=== PATIENT | male | born 1960 | race Caucasian/White ===

== ENCOUNTER 2016-07-11 17:30 | Outpatient (CLI) | payer OTHER | END 2016-07-11 17:31 | disposition home or self-care (01) | DX: T84.59XA Infection and inflammatory reaction due to other internal joint prosthesis, initial encounter (principal) ==

== ENCOUNTER 2017-02-07 13:05 | Outpatient (CLI) | payer OTHER ==
[2017-02-08 10:07] LABS: TEST RESULT REPORT (())
== END 2017-02-07 13:06 | disposition home or self-care (01) ==
LOC: LAB.F 13:05
PROVIDERS: ATTEND Family Medicine
DX: Z11.3 Encounter for screening for infections with a predominantly sexual mode of transmission (principal)
CPT/HCPCS: 36415; 81599; 86592; 86694; 86695; 86696; 86704; 86803; 87340; 87389; 87491; 87591

== ENCOUNTER 2017-03-25 08:30 | Outpatient (CLI) | payer OTHER ==
[2017-03-25 13:53] LABS: BASOPHILS # (AUTO) 0.1 10^3/uL (0.0-0.1); BASOPHILS % (AUTO) 0.8 %; EOSINOPHILS # (AUTO) 0.2 10^3/uL (0.0-0.7); EOSINOPHILS % (AUTO) 2.8 %; HCT - HEMATOCRIT 43.6 % (42.0-52.0); HGB - HEMOGLOBIN 14.7 g/dL (14.0-18.0); LYMPHOCYTES # (AUTO) 2.9 10^3/uL (1.5-3.5); LYMPHOCYTES % (AUTO) 38.6 %; MEAN CORPUSCULAR HEMOGLOBIN 31.1 pg (27.0-31.0); MEAN CORPUSCULAR HGB CONC 33.8 g/dL (32.0-36.0); MEAN PLATELET VOLUME 9.9 fL (7.4-11.4); MONOCYTES # (AUTO) 0.6 10^3/uL (0.0-1.0); MONOCYTES % (AUTO) 7.3 %; NEUTROPHILS # (AUTO) 3.8 10^3/uL (1.5-6.6); NEUTROPHILS % (AUTO) 50.5 %; RED BLOOD COUNT 4.74 10^6/uL (4.70-6.10); RED CELL DISTRIBUTION WIDTH 13.7 % (12.0-15.0); UNCORRECTED WHITE BLOOD COUNT 7.6 x10^3/uL; WHITE BLOOD COUNT 7.6 x10^3/uL (4.8-10.8)
[2017-03-25 14:04] LABS: CALCIUM 8.9 mg/dL (8.5-10.3); CARBON DIOXIDE - CO2 27 mmol/L (21-32); CHLORIDE 106 mmol/L (101-111); GLUCOSE 97 mg/dL (70-100); POTASSIUM 4.3 mmol/L (3.5-5.0); SODIUM 139 mmol/L (135-145)
[2017-03-25 14:28] LABS: THYROID STIMULATING HORMONE 1.32 uIU/mL (0.34-5.60)
[2017-03-25 14:32] LABS: FERRITIN 74.4 ng/mL (23.9-336.2); TOTAL T3 0.82 ng/mL (0.87-1.78)
[2017-03-25 14:39] LABS: ALBUMIN/GLOBULIN RATIO 1.6 (1.0-2.2); BILIRUBIN,TOTAL 0.6 mg/dL (0.2-1.0); BUN - BLOOD UREA NITROGEN 14 mg/dL (6-20); CHOL/HDL RATIO 4.2 (<5.0); CHOLESTEROL 181 mg/dL; CREATININE 0.9 mg/dL (0.6-1.2); GFR - MDRD 87 (>89); HDL CHOLESTEROL 43 mg/dL; LDL/HDL RATIO 2.9 (<3.6); TOTAL PROTEIN 6.7 g/dL (6.7-8.2); TRIGLYCERIDES 62 mg/dL; VLDL CHOLESTEROL 12 mg/dL
[2017-03-25 15:36] LABS: HEMOGLOBIN A1C 0.6 g/dL
== END 2017-03-25 08:31 | disposition home or self-care (01) ==
LOC: LAB.F 08:30
PROVIDERS: ATTEND Family Medicine
DX: Z00.00 Encounter for general adult medical examination without abnormal findings (principal); E03.9 Hypothyroidism, unspecified; E55.9 Vitamin D deficiency, unspecified; R53.83 Other fatigue; I10 Essential (primary) hypertension
CPT/HCPCS: 36415; 80053; 80061; 82306; 82626; 82728; 83036; 84439; 84443; 84480; 84481; 84482; 85025

== ENCOUNTER 2019-07-19 14:25 | Outpatient (CLI) | payer OTHER ==
[2019-07-19 18:24] LABS: ALBUMIN 4.2 g/dL (3.2-5.5); ALBUMIN/GLOBULIN RATIO 1.4 (1.0-2.2); BILIRUBIN,TOTAL 0.5 mg/dL (0.2-1.0); CALCIUM 9.2 mg/dL (8.5-10.3); CREATININE 1.1 mg/dL (0.6-1.2); TOTAL PROTEIN 7.2 g/dL (6.7-8.2)
== END 2019-07-19 14:26 | disposition home or self-care (01) ==
LOC: LAB.S 14:25
PROVIDERS: ATTEND Nurse Practitioner Psychiatric/Mental Health
DX: F43.12 Post-traumatic stress disorder, chronic (principal); Z79.899 Other long term (current) drug therapy
CPT/HCPCS: 36415; 80053

== ENCOUNTER 2020-11-03 10:07 | Outpatient (CLI) | payer OTHER ==
[2020-11-03 14:47] LABS: BASOPHILS # (AUTO) 0.1 10^3/uL (0.0-0.1); BASOPHILS % (AUTO) 0.8 %; EOSINOPHILS # (AUTO) 0.2 10^3/uL (0.0-0.7); EOSINOPHILS % (AUTO) 2.2 %; HCT - HEMATOCRIT 46.9 % (42.0-52.0); HGB - HEMOGLOBIN 15.7 g/dL (14.0-18.0); LYMPHOCYTES % (AUTO) 51.5 %; MEAN CORPUSCULAR HGB CONC 33.5 g/dL (32.0-36.0); MEAN CORPUSCULAR VOLUME 98.5 fL (80.0-94.0); MEAN PLATELET VOLUME 11.3 fL (7.4-11.4); MONOCYTES # (AUTO) 0.6 10^3/uL (0.0-1.0); NEUTROPHILS # (AUTO) 2.9 10^3/uL (1.5-6.6); NEUTROPHILS % (AUTO) 37.4 %; PLT - PLATELET COUNT 220 10^3/uL (130-450); RED BLOOD COUNT 4.76 10^6/uL (4.70-6.10); RED CELL DISTRIBUTION WIDTH 13.2 % (12.0-15.0); WHITE BLOOD COUNT 7.8 x10^3/uL (4.8-10.8)
[2020-11-03 15:22] LABS: ALBUMIN 4.3 g/dL (3.2-5.5); ALBUMIN/GLOBULIN RATIO 1.3 (1.0-2.2); ALKALINE PHOSPHATASE 59 IU/L (42-121); ALT ALANINE AMINOTRANSFERASE 27 IU/L (10-60); AST ASPARTATE AMINOTRANSFERASE 28 IU/L (10-42); BILIRUBIN,TOTAL 0.8 mg/dL (0.2-1.0); BUN - BLOOD UREA NITROGEN 11 mg/dL (6-20); CALCIUM 9.2 mg/dL (8.5-10.3); CARBON DIOXIDE - CO2 28 mmol/L (21-32); CHLORIDE 102 mmol/L (101-111); CHOL/HDL RATIO 3.1 (<5.0); CHOLESTEROL 206 mg/dL; GFR - MDRD 76 (>89); GLUCOSE 118 mg/dL (70-100); HDL CHOLESTEROL 66 mg/dL; LDL CHOLESTEROL,CALCULATED 124 mg/dL; LDL/HDL RATIO 1.9 (<3.6); POTASSIUM 4.4 mmol/L (3.5-5.0); SODIUM 140 mmol/L (135-145); TOTAL PROTEIN 7.6 g/dL (6.7-8.2); TRIGLYCERIDES 79 mg/dL; VLDL CHOLESTEROL 16 mg/dL
[2020-11-03 15:30] LABS: THYROID STIMULATING HORMONE 1.1 uIU/mL (0.34-5.60)
== END 2020-11-03 10:08 | disposition home or self-care (01) ==
LOC: LAB.S 10:07
PROVIDERS: ATTEND Nurse Practitioner Psychiatric/Mental Health
DX: F43.12 Post-traumatic stress disorder, chronic (principal); E55.9 Vitamin D deficiency, unspecified
CPT/HCPCS: 36415; 80053; 80061; 82306; 82607; 83721; 84443; 85025

== ENCOUNTER 2021-03-09 20:58 | Outpatient (CLI) | payer OTHER | END 2021-03-09 20:59 | disposition critical access hospital (66) | LOC: EMS 20:58 | DX: R07.9 Chest pain, unspecified (principal) | CPT/HCPCS: A0425; A0427 ==

== ENCOUNTER 2021-03-09 22:07 | Emergency (ER) | payer OTHER ==
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
[2021-03-09 22:32] LABS: BASOPHILS % (AUTO) 0.3 %; EOSINOPHILS % (AUTO) 0.3 %; HCT - HEMATOCRIT 42.3 % (42.0-52.0); HGB - HEMOGLOBIN 14.3 g/dL (14.0-18.0); LYMPHOCYTES # (AUTO) 3.1 10^3/uL (1.5-3.5); LYMPHOCYTES % (AUTO) 29.6 %; MEAN CORPUSCULAR HEMOGLOBIN 33.7 pg (27.0-31.0); MEAN CORPUSCULAR HGB CONC 33.8 g/dL (32.0-36.0); MEAN CORPUSCULAR VOLUME 99.8 fL (80.0-94.0); MEAN PLATELET VOLUME 10.3 fL (7.4-11.4); MONOCYTES # (AUTO) 0.6 10^3/uL (0.0-1.0); NEUTROPHILS # (AUTO) 6.8 10^3/uL (1.5-6.6); NEUTROPHILS % (AUTO) 63.6 %; PLT - PLATELET COUNT 207 10^3/uL (130-450); RED BLOOD COUNT 4.24 10^6/uL (4.70-6.10); RED CELL DISTRIBUTION WIDTH 12.8 % (12.0-15.0); WHITE BLOOD COUNT 10.6 x10^3/uL (4.8-10.8)
[2021-03-09 22:46] LABS: ALBUMIN 3.9 g/dL (3.2-5.5); ALBUMIN/GLOBULIN RATIO 1.3 (1.0-2.2); BILIRUBIN,TOTAL 0.8 mg/dL (0.2-1.0); CALCIUM 8.6 mg/dL (8.5-10.3); CREATININE 0.9 mg/dL (0.6-1.2); POTASSIUM 3.9 mmol/L (3.5-5.0); TOTAL PROTEIN 6.9 g/dL (6.7-8.2)
[2021-03-09] MEDS ORDERED: HYDROmorphone 1 MG/ML CARPUJECT IVP STA (22:59)
[2021-03-09] MEDS ORDERED: SODIUM CHLORIDE 0.9% 1,000 ML IV STA (22:59)
--- NOTE | 2021-03-09 22:59 | XRAY Report ---
PROCEDURE: Chest 1 View X-Ray INDICATIONS: Chest Pain TECHNIQUE: One view of the chest was acquired. COMPARISON: 05/18/2013. FINDINGS: Surgical changes and devices: Right shoulder arthroplasty. Lungs and pleura: No pleural effusions or pneumothorax. Lungs are clear. Mediastinum: Mediastinal contours appear normal. Heart size is normal. Bones and chest wall: No suspicious bony lesions. Overlying soft tissues appear unremarkable. IMPRESSION: No acute cardiopulmonary disease process. Reviewed by: Santa So MD, PhD on 03/09/2021 10:58 PM PDT Approved by: Santa So MD, PhD on 03/09/2021 10:58 PM PDT Station ID: [id number]
[2021-03-09] MEDS ORDERED: IOVERSOL 320 100 ML VIAL IVP ONE (23:28)
--- NOTE | 2021-03-10 00:29 | CT Report ---
PROCEDURE: ANGIO CHEST W/WO INDICATIONS: severe sudden onset R chest pain CONTRAST: IV CONTRAST: Optiray 320 ml: 100 PO CONTRAST: *NO PO CONTRAST TECHNIQUE: Prior to and after administration of intravenous contrast, 2 mm axial images were acquired from the p ulmonary apices to the posterior costophrenic angles during the arterial phase. In addition, 1 mm shanna g kernel and 5 mm soft tissue kernel reconstructions were performed. 3-dimensional coronal oblique ma ximum intensity projection (MIP) reformats, 8 mm axial MIP, and 5 mm coronal and sagittal MPR reforma ts were then performed through the thorax. For radiation dose reduction, the following was used: auto mated exposure control, adjustment of mA and/or kV according to patient size. COMPARISON: None FINDINGS: Image quality: Excellent. Aorta: Thoracic aorta is normal caliber. Precontrast images demonstrate no segmental aortic hematoma. Postcontrast images demonstrate normal postcontrast enhancement with no dissection. A few scattered atherosclerotic calcifications noted in the thoracic aorta without vascular stenosis. Lungs and pleur a: Lungs are clear. No pleural effusions or pneumothorax. Central and peripheral airways are paten t. Mediastinum: Heart size is normal, without pericardial effusion. No mediastinal or hilar adenopathy . Thoracic aorta is normal in caliber and enhancement. Esophagus is normal in caliber, without hiat al hernia. Bones and chest wall: Right shoulder arthroplasty. No suspicious bony lesions. Mildly displaced acut e anterolateral right fifth and sixth rib fractures. Chronic anterior right fourth rib fracture. Spin e degenerative disc disease and facet arthropathy are noted. No axillary or supraclavicular adenopat hy. The thyroid is normal in size and there are no incidental findings. Abdomen: Visualized upper abdominal solid organs appear normal in the early arterial phase of enhanc ement. IMPRESSION: Right fifth and sixth rib fractures. Reviewed by: Santa So MD, PhD on 03/10/2021 12:27 AM PDT Approved by: Santa So MD, PhD on 03/10/2021 12:27 AM PDT Station ID: [id number]
--- NOTE | 2021-03-10 00:33 | CT Report ---
PROCEDURE: ANGIO ABDOMEN W/WO INDICATIONS: follow through for CTA chest dissection study CONTRAST: IV CONTRAST: Optiray 320 ml: 100 PO CONTRAST: *NO PO CONTRAST TECHNIQUE: Prior to and following the administration of intravenous contrast, 2.5 mm thick sections acquired fro m the diaphragm to the iliac crests 10 mm maximum-intensity projection (MIP) reformats were then acqu ired. For radiation dose reduction, the following was used: automated exposure control. COMPARISON: None FINDINGS: Image quality: Excellent. Aorta: Aorta demonstrates normal caliber and postcontrast enhancement. No aortic dissection. Scatter ed prostatic calcifications noted in the aorta and the abdominal Haresh without hemodynamically sig nificant stenosis. Extravascular soft tissues: Atelectasis noted in the pinna portions of the lung bases. Heart size is normal. Liver and spleen are normal in size and enhancement. Gallbladder is within normal limits. Biliary system is non dilated. Pancreas enhances normally. No adrenal nodules. Kidneys are normal in size and enhancement, without hydronephrosis. Small hiatal hernia. Non opacified bowel loops are normal in wall thickness and caliber. No free fluid or air. No retroperitoneal or mesenteric adenop athy. No ventral hernias. No suspicious bony lesions. No vertebral body compression fractures. Spi ne degenerative disc disease and facet arthropathy are noted. IMPRESSION: No aortic dissection. Reviewed by: Santa So MD, PhD on 03/10/2021 12:32 AM PDT Approved by: Santa So MD, PhD on 03/10/2021 12:32 AM PDT Station ID: [id number]
[2021-03-10 00:37] VITALS: BP 117/82
[2021-03-10] MEDS ORDERED: oxyCODONE/ACET 5/325 Prepack 4 PO STA (01:24)
[2021-03-10] MEDS ORDERED: IOVERSOL 320 100 ML VIAL IVP ONE (01:27)
== END 2021-03-10 01:33 | disposition home or self-care (01) ==
LOC: EDUNIT# → ED 22:07
DX: S22.41XA Multiple fractures of ribs, right side, initial encounter for closed fracture (principal); S50.311A Abrasion of right elbow, initial encounter; X58.XXXA Exposure to other specified factors, initial encounter; Y93.89 Activity, other specified; I10 Essential (primary) hypertension
CPT/HCPCS: 36415; 71045; 71275; 74175; 80053; 83690; 84484; 85025; 93005; 94150; 96374; 99284; J1170; Q9967

== ENCOUNTER 2021-03-13 13:48 | Observation (INO) | payer OTHER ==
[2021-03-13] MEDS ORDERED: DEXAMETHASONE 10 MG/ML VIAL IVP STA (14:11)
[2021-03-13] MEDS ORDERED: KETOROLAC 30 MG/ML VIAL IVP STA (14:11)
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
--- NOTE | 2021-03-13 14:37 | XRAY Report ---
PROCEDURE: Chest 1 View X-Ray INDICATIONS: chest pain TECHNIQUE: One view of the chest was acquired. COMPARISON: March 09, 2021 FINDINGS: SUPPORT DEVICES: None. LUNG/PLEURA: Left basilar platelike densities. The remaining lung zones well aerated. MEDIASTINUM: The cardiomediastinal silhouette is within normal limits. BONES/SOFT TISSUES: No acute abnormality. Persistent elevation of the left diaphragm. A right shoulder arthroplasty is noted. IMPRESSION: 1.Left basilar densities, likely reflecting atelectasis. A superimposed infiltrate cannot be excluded . Reviewed by: Luis A Nice MD on 03/13/2021 2:35 PM PDT Approved by: Luis A Nice MD on 03/13/2021 2:35 PM PDT Station ID: [id number]
[2021-03-13] MEDS ORDERED: HYDROmorphone 0.5 MG/0.5 ML SYRINGE IVP PRN (16:27)
[2021-03-13] MEDS ORDERED: ACETAMINOPHEN 325 MG TABLET PO PRN (16:27)
[2021-03-13] MEDS ORDERED: ONDANSETRON ODT 4 MG TABLET TL PRN (16:27)
[2021-03-13] MEDS ORDERED: ONDANSETRON 4 MG/2 ML VIAL IVP PRN (16:27)
[2021-03-13] MEDS ORDERED: oxyCODONE 5 MG TABLET PO PRN (16:27)
[2021-03-13] MEDS ORDERED: SODIUM CHLORIDE FLUSH 0.9% 10 ML SYRINGE IVP PRN (16:27)
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
[2021-03-13 17:27] LABS: B. PARAPERTUSSIS- RESP PCR PAN NOT DETECTED; B. PERTUSSIS- RESP PCR PANEL NOT DETECTED; C. PNEUMONIAE- RESP PCR PANEL NOT DETECTED; CORONAVIRUS 229E-RESP PCR NOT DETECTED; CORONAVIRUS HKU1-RESP PCR NOT DETECTED; CORONAVIRUS NL63-RESP PCR NOT DETECTED; CORONAVIRUS OC43-RESP PCR NOT DETECTED; HUMAN METAPNEUMOVIRUS NOT DETECTED; INFLUENZA A- RESP PCR PANEL NOT DETECTED; INFLUENZA B - RESP PCR PANEL NOT DETECTED; M. PNEUMONIAE- RESP PCR PANEL NOT DETECTED; PARAINFLUENZA VIRUS 1 NOT DETECTED; PARAINFLUENZA VIRUS 2 NOT DETECTED; PARAINFLUENZA VIRUS 3 NOT DETECTED; PARAINFLUENZA VIRUS 4 NOT DETECTED; RHINOVIRUS/ENTEROVIRUS NOT DETECTED; RSV- RESP PCR PANEL NOT DETECTED; SARS-CoV-2 -RESP PCR PANEL NOT DETECTED
[2021-03-13] MEDS: KETOROLAC 15 MG/ML VIAL IVP SCH (17:44)
[2021-03-13] MEDS: SODIUM CHLORIDE FLUSH 0.9% 10 ML SYRINGE IVP SCH (17:44)
[2021-03-13] MEDS: D5.45NS W/20 MEQ KCL 1,000 ML IV SCH (17:45)
[2021-03-13] MEDS: oxyCODONE 5 MG TABLET PO PRN (19:29)
[2021-03-13] MEDS: FAMOTIDINE 20 MG TABLET PO SCH (21:13)
[2021-03-14] MEDS: KETOROLAC 15 MG/ML VIAL IVP SCH ×2 (00:22→05:30)
[2021-03-14] MEDS: oxyCODONE 5 MG TABLET PO PRN ×2 (00:23→05:32)
[2021-03-14] MEDS: SODIUM CHLORIDE FLUSH 0.9% 10 ML SYRINGE IVP SCH ×2 (00:23→10:56)
[2021-03-14] MEDS: D5.45NS W/20 MEQ KCL 1,000 ML IV SCH (06:42)
--- NOTE | 2021-03-14 08:55 | Discharge Plan ---
Discharge Plan Problem Reviewed?: Yes Disposition: Home, Self Care Condition: Good Prescriptions: HYDROmorphone [Dilaudid] 2 mg PO Q4H PRN #40 tablet PRN Reason: Pain Diet: Regular Activity Restrictions: No Restrictions Shower Restrictions: No Driving Restrictions: No (no driving while taking prescription pain pills) Plan of Treatment: pain control Assessment: rib fractures Additional Instructions or Follow Up instructions: call the surgery office as needed follow up as needed [phone] No Smoking: If you smoke, Please STOP! Call for help. Follow-up with: Julio Chairez MD [Provider Admit Priv/Credential] -
--- NOTE | 2021-03-14 08:57 | DISCHARGE SUMMARY ---
"Discharge Summary Admit Date: 03/13/21 Discharge Date: 03/14/21 Code Status: Attempt Resuscitation Condition at Discharge: Good Discharge Disposition: 01 Home, Self Care Discharge Facility Name: [facility] - DIAGNOSES Admission Diagnoses: rib fractures with compromised breathing Discharge Diagnoses with Status of Each Condition: home with pain and breathing improved. good condition - HPI History of Present Illness: Fall and right chest wall injury with rib fractures - CONSULTS | PROCEDURES Procedures: pain controlled to allow improved breathing - HOSPITAL COURSE Hospital Course: improved. home able to take good breaths - ALLERGIES Allergies/Adverse Reactions: Allergies Allergy/AdvReac Type Severity Reaction Status Date / Time Penicillins Allergy Intermediate Rash Verified 03/13/21 14:04 - MEDICATIONS Home Medications: Ambulatory Orders Medication Instructions Recorded Confirmed Oxycodone HCl/Acetaminophen 1 each PO Q4H PRN #20 tablet 03/10/21 03/13/21 [Percocet 10-325 mg Tablet] Fluoxetine HCl [Prozac] 20 mg PO DAILY 03/13/21 03/13/21 QUEtiapine [SEROquel] 75 mg PO QPM 03/13/21 03/13/21 HYDROmorphone [Dilaudid] 2 mg PO Q4H PRN #40 tablet 03/14/21 Home Medications Other | Comments: you may take 2 over the counter tylenol and ibuprofen/ motrin 3 times daily with meals in addition to the prescription pain pill - PHYSICAL EXAM AT DISCHARGE General Appearance: positive: No acute distress, Alert Eyes Bilateral: positive: PERRL, EOMI ENT: positive: No signs of dehydration Neck: positive: No JVD Respiratory: positive: No respiratory distress, Breath sounds nml Cardiovascular: positive: Regular rate & rhythm Extremities: positive: Non-tender Neurologic/Psychiatric: positive: Oriented x3 - FOLLOW UP Follow Up: with Shannan Chairez MD surgery as needed [phone]"
[2021-03-14] MEDS ORDERED: polyethylene glycoL 3350 17 GM PACKET PO SCH (09:00)
[2021-03-14 10:23] VITALS: BP 160/95
[2021-03-14] MEDS: FAMOTIDINE 20 MG TABLET PO SCH (10:55)
== END 2021-03-14 11:15 | disposition home or self-care (01) ==
LOC: ED 13:48 → MS3 16:27
PROVIDERS: ADMIT Surgery; ATTEND Surgery
DX: G89.11 Acute pain due to trauma (principal); S22.41XD Multiple fractures of ribs, right side, subsequent encounter for fracture with routine healing; R06.09 Other forms of dyspnea; I10 Essential (primary) hypertension; V19.9XXD Pedal cyclist (driver) (passenger) injured in unspecified traffic accident, subsequent encounter; Y92.9 Unspecified place or not applicable; Z20.822 Contact with and (suspected) exposure to COVID-19
CPT/HCPCS: 0202U; 36415; 71045; 96374; 96375; 96376; 99284; 99285; A9270; G0378

== ENCOUNTER 2021-12-19 09:39 | Outpatient (CLI) | payer OTHER ==
[2021-12-19 14:45] LABS: BASOPHILS # (AUTO) 0.1 10^3/uL (0.0-0.1); BASOPHILS % (AUTO) 1.2 %; EOSINOPHILS # (AUTO) 0.1 10^3/uL (0.0-0.7); EOSINOPHILS % (AUTO) 1.7 %; HCT - HEMATOCRIT 45.1 % (42.0-52.0); HGB - HEMOGLOBIN 15.5 g/dL (14.0-18.0); LYMPHOCYTES # (AUTO) 2.9 10^3/uL (1.5-3.5); LYMPHOCYTES % (AUTO) 47.8 %; MEAN CORPUSCULAR HEMOGLOBIN 33.8 pg (27.0-31.0); MEAN CORPUSCULAR HGB CONC 34.4 g/dL (32.0-36.0); MEAN CORPUSCULAR VOLUME 98.3 fL (80.0-94.0); MEAN PLATELET VOLUME 11.6 fL (7.4-11.4); MONOCYTES # (AUTO) 0.6 10^3/uL (0.0-1.0); MONOCYTES % (AUTO) 9.4 %; NEUTROPHILS # (AUTO) 2.4 10^3/uL (1.5-6.6); NEUTROPHILS % (AUTO) 39.7 %; PLT - PLATELET COUNT 199 10^3/uL (130-450); RED BLOOD COUNT 4.59 10^6/uL (4.70-6.10); RED CELL DISTRIBUTION WIDTH 13.5 % (12.0-15.0)
[2021-12-19 15:26] LABS: ALBUMIN/GLOBULIN RATIO 1.2 (1.0-2.2); ALKALINE PHOSPHATASE 44 IU/L (42-121); ALT ALANINE AMINOTRANSFERASE 34 IU/L (10-60); AST ASPARTATE AMINOTRANSFERASE 42 IU/L (10-42); BILIRUBIN,TOTAL 1.1 mg/dL (0.2-1.0); BUN - BLOOD UREA NITROGEN 9 mg/dL (6-20); CALCIUM 9.2 mg/dL (8.5-10.3); CARBON DIOXIDE - CO2 27 mmol/L (21-32); CHLORIDE 103 mmol/L (101-111); CHOL/HDL RATIO 2.5 (<5.0); CHOLESTEROL 186 mg/dL; CREATININE 0.9 mg/dL (0.6-1.2); GFR - MDRD 86 (>89); GLUCOSE 95 mg/dL (70-100); HDL CHOLESTEROL 73 mg/dL; LDL CHOLESTEROL,CALCULATED 100 mg/dL; LDL/HDL RATIO 1.4 (<3.6); POTASSIUM 4.1 mmol/L (3.5-5.0); SODIUM 140 mmol/L (135-145); TOTAL PROTEIN 7.3 g/dL (6.7-8.2); TRIGLYCERIDES 65 mg/dL; VLDL CHOLESTEROL 13 mg/dL
== END 2021-12-19 09:40 | disposition home or self-care (01) ==
LOC: LAB.S 09:39
PROVIDERS: ATTEND Nurse Practitioner Psychiatric/Mental Health
DX: E55.9 Vitamin D deficiency, unspecified (principal); F43.12 Post-traumatic stress disorder, chronic; Z79.899 Other long term (current) drug therapy
CPT/HCPCS: 36415; 80053; 80061; 82306; 83721; 85025

== ENCOUNTER 2023-05-23 08:56 | Outpatient (CLI) | payer OTHER ==
[2023-05-23 14:47] LABS: BASOPHILS # (AUTO) 0.1 10^3/uL (0.0-0.1); EOSINOPHILS # (AUTO) 0.2 10^3/uL (0.0-0.7); EOSINOPHILS % (AUTO) 2.9 %; HCT - HEMATOCRIT 44.4 % (42.0-52.0); HGB - HEMOGLOBIN 14.3 g/dL (14.0-18.0); LYMPHOCYTES # (AUTO) 3.1 10^3/uL (1.5-3.5); LYMPHOCYTES % (AUTO) 49.4 %; MEAN CORPUSCULAR HEMOGLOBIN 31.7 pg (27.0-31.0); MEAN CORPUSCULAR HGB CONC 32.2 g/dL (32.0-36.0); MEAN CORPUSCULAR VOLUME 98.4 fL (80.0-94.0); MEAN PLATELET VOLUME 11.5 fL (7.4-11.4); MONOCYTES # (AUTO) 0.8 10^3/uL (0.0-1.0); MONOCYTES % (AUTO) 13.2 %; NEUTROPHILS # (AUTO) 2.1 10^3/uL (1.5-6.6); NEUTROPHILS % (AUTO) 33.3 %; PLT - PLATELET COUNT 178 10^3/uL (130-450); RED BLOOD COUNT 4.51 10^6/uL (4.70-6.10); RED CELL DISTRIBUTION WIDTH 14.4 % (12.0-15.0); WHITE BLOOD COUNT 6.3 x10^3/uL (4.8-10.8)
[2023-05-23 15:50] LABS: ALBUMIN/GLOBULIN RATIO 1.3 (1.0-2.2); ALKALINE PHOSPHATASE 47 IU/L (42-121); ALT ALANINE AMINOTRANSFERASE 22 IU/L (10-60); AST ASPARTATE AMINOTRANSFERASE 19 IU/L (10-42); BILIRUBIN,TOTAL 0.6 mg/dL (0.2-1.0); BUN - BLOOD UREA NITROGEN 9 mg/dL (6-20); CALCIUM 9.4 mg/dL (8.5-10.3); CARBON DIOXIDE - CO2 30 mmol/L (21-32); CHLORIDE 104 mmol/L (101-111); CHOL/HDL RATIO 3.2 (<5.0); CHOLESTEROL 168 mg/dL; CREATININE 1.1 mg/dL (0.6-1.3); GFR - MDRD 68 (>89); GLUCOSE 95 mg/dL (74-104); HDL CHOLESTEROL 53 mg/dL; LDL CHOLESTEROL,CALCULATED 101 mg/dL; LDL/HDL RATIO 1.9 (<3.6); POTASSIUM 3.8 mmol/L (3.5-4.5); SODIUM 138 mmol/L (135-145); TOTAL PROTEIN 7.1 g/dL (6.4-8.9); TRIGLYCERIDES 69 mg/dL (48-352); VLDL CHOLESTEROL 14 mg/dL
== END 2023-05-23 08:57 | disposition home or self-care (01) ==
LOC: LAB.S 08:56
PROVIDERS: ATTEND Nurse Practitioner Psychiatric/Mental Health
DX: F43.12 Post-traumatic stress disorder, chronic (principal); Z79.899 Other long term (current) drug therapy
CPT/HCPCS: 36415; 80053; 80061; 83721; 85025

== ENCOUNTER 2023-11-12 08:00 | Outpatient (CLI) | payer OTHER ==
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
== END 2023-11-12 23:59 | disposition home or self-care (01) ==
LOC: DI.S 08:00
PROVIDERS: ATTEND Emergency Medicine
DX: M16.12 Unilateral primary osteoarthritis, left hip (principal)

== ENCOUNTER 2023-11-24 18:54 | Emergency (ER) | payer OTHER ==
--- NOTE | 2023-11-24 19:14 | ED Physician Documentation ---
PD HPI CHEST PAIN - Stated complaint Stated Complaint: SOA/CHEST TIGHT - Chief complaint Chief Complaint: Resp - History obtained from History obtained from: Patient - Additional information Additional information: 63-year-old gentleman has had 3 days of exertional dyspnea and chest pressure. He has no history of heart problems. He says he had borderline high blood pressures in the past but never needed specific treatment. He states that his symptoms are worsening, today after carrying in groceries he had to lay down for 20 minutes before the shortness of breath went away. He denies pedal edema, calf pain, or recent travel. PD PAST MEDICAL HISTORY - Past Medical History Past Medical History: Yes Cardiovascular: Hypertension Respiratory: None Neuro: None Endocrine/Autoimmune: None GI: None : None HEENT: None Psych: None Musculoskeletal: None Derm: None - Past Surgical History Past Surgical History: Yes Ortho: Shoulder arthroplasty - Present Medications Home Medications: Ambulatory Orders Medication Instructions Recorded Confirmed Oxycodone HCl/Acetaminophen 1 each PO Q4H PRN #20 tablet 03/10/21 03/13/21 [Percocet 10-325 mg Tablet] Fluoxetine HCl [Prozac] 20 mg PO DAILY 03/13/21 03/13/21 QUEtiapine [SEROquel] 75 mg PO QPM 03/13/21 03/13/21 HYDROmorphone [Dilaudid] 2 mg PO Q4H PRN #40 tablet 03/14/21 - Allergies Allergies/Adverse Reactions: Allergies Allergy/AdvReac Type Severity Reaction Status Date / Time Penicillins Allergy Intermediate Rash Verified 11/24/23 18:57 - Social History Does the pt smoke?: No Smoking Status: Never smoker Does the pt drink ETOH?: Yes Does the pt have substance abuse?: No - Immunizations Immunizations are current?: Yes - POLST Patient has POLST: No PD ED PE NORMAL - Vitals Vital signs reviewed: Yes - General General: Alert and oriented X 3, Other (Appears anxious with mild resting tachycardia) - HEENT HEENT: PERRL, EOMI - Neck Neck: Supple, no meningeal sign, No bony TTP - Cardiac Cardiac: RRR, No murmur, Other (Tachycardic but regular without murmur) - Respiratory Respiratory: No respiratory distress, Clear bilaterally - Abdomen Abdomen: Non tender - Extremities Extremities: No edema, No calf tenderness / cord - Neuro Neuro: Alert and oriented X 3, Normal speech Results - Vitals Vitals: Vital Signs - 24 hr 11/24/23 11/24/23 11/24/23 18:58 20:00 22:00 Temperature 36.7 C Heart Rate 110 H 85 65 Respiratory 20 16 18 Rate Blood Pressure 145/85 H 143/117 H 149/119 H O2 Saturation 100 98 98 Oxygen O2 Source Room air - EKG (time done) 1907 EKG releavant findings:: EKG personally interpreted by author of this note. Relevant findings are: Rate: Rate (enter#) (105) Rhythm: Sinus tachycardia Pansey: Normal Intervals: Normal IN Ischemia: Q waves (Inferior). No: ST elevation c/w ischemia, ST depression Computer interpretation: Agree with computer - Labs Labs: Laboratory Tests 11/24/23 11/24/23 11/24/23 19:23 19:23 21:08 WBC 9.5 RBC 4.81 Hgb 15.7 Hct 45.5 MCV 94.6 H MCH 32.6 H MCHC 34.5 RDW 12.3 Plt Count 201 MPV 11.8 H Neut # (Auto) 6.2 Lymph # (Auto) 2.5 Lynn # (Auto) 0.6 Eos # (Auto) 0.1 Baso # (Auto) 0.1 Absolute Nucleated RBC 0.00 Nucleated RBC % 0.0 Sodium 138 Potassium 3.4 L Chloride 103 Carbon Dioxide 24 Anion Gap 11.0 BUN 23 H Creatinine 1.7 H Estimated GFR (MDRD) 41 L Glucose 125 H Calcium 10.7 H Total Bilirubin 0.9 AST 50 H ALT 43 Alkaline Phosphatase 57 Troponin I High Sens 6.1 6.4 Total Protein 7.4 Albumin 4.4 Globulin 3.0 Albumin/Globulin Ratio 1.5 Lipase < 10 L - Rads (name of study) 1v cxr Relevant Findings:: Final report received, EMP independent interpretation of test ct a/p Relevant Findings:: Final report received, EMP independent interpretation of test PD Medical Decision Making - ED course ED course: 63-year-old gentleman's presents with exertional dyspnea and chest tightness. It is of 3 days duration and his symptoms are progressive and that it takes less exertion to trigger the symptoms and the symptoms are lasting longer before t hey donny with rest. He has some mild chest tightness on arrival which went away after the administration of some beta-blockade and aspirin. He has an elevated left hemidiaphragm on chest x-ray and I obtained a CT to further evaluate and it looks like this is all chronic. As such I cannot talk any of his symptoms up to that. Troponin testing was negative both initially and after couple of hours, that said he is pain-free now. He says because of his current exertional dyspnea he would not probably be able to tolerate stress testing and as such I am asking the health community association manager to call around for transfer to a facility capable of cardiology evaluation with setting expectations that it is likely transfer would not be expedient. Discussed case by phone with Dr. Pipe Marques, children's zoo caretaker at [facility] who agrees with current management and defers to hospitalist service for transfer. Of note there were no other closer open beds available with cardiology capabilities. Care to overnight EDMD at 10pm pending call back from [facility] hospitalist. Departure - Departure Disposition: 02 Transfer Acute Care Hosp Clinical Impression: Unstable angina Condition: Stable Forms: PCP List
[2023-11-24 19:26] LABS: BASOPHILS # (AUTO) 0.1 10^3/uL (0.0-0.1); BASOPHILS % (AUTO) 0.5 %; EOSINOPHILS # (AUTO) 0.1 10^3/uL (0.0-0.7); EOSINOPHILS % (AUTO) 0.8 %; HCT - HEMATOCRIT 45.5 % (42.0-52.0); HGB - HEMOGLOBIN 15.7 g/dL (14.0-18.0); LYMPHOCYTES # (AUTO) 2.5 10^3/uL (1.5-3.5); LYMPHOCYTES % (AUTO) 25.9 %; MEAN CORPUSCULAR HEMOGLOBIN 32.6 pg (27.0-31.0); MEAN CORPUSCULAR HGB CONC 34.5 g/dL (32.0-36.0); MEAN CORPUSCULAR VOLUME 94.6 fL (80.0-94.0); MEAN PLATELET VOLUME 11.8 fL (7.4-11.4); MONOCYTES # (AUTO) 0.6 10^3/uL (0.0-1.0); MONOCYTES % (AUTO) 6.8 %; NEUTROPHILS # (AUTO) 6.2 10^3/uL (1.5-6.6); NEUTROPHILS % (AUTO) 65.8 %; PLT - PLATELET COUNT 201 10^3/uL (130-450); RED BLOOD COUNT 4.81 10^6/uL (4.70-6.10); RED CELL DISTRIBUTION WIDTH 12.3 % (12.0-15.0); WHITE BLOOD COUNT 9.5 x10^3/uL (4.8-10.8)
[2023-11-24] MEDS: METOPROLOL 5 MG/5 ML VIAL IVP STA (19:35)
[2023-11-24] MEDS: METOPROLOL TARTRATE 50 MG TABLET PO STA (19:35)
[2023-11-24] MEDS: ASPIRIN CHEW 81 MG TABLET PO STA (19:35)
[2023-11-24 19:43] LABS: ALBUMIN 4.4 g/dL (3.2-5.5); ALBUMIN/GLOBULIN RATIO 1.5 (1.0-2.2); ALKALINE PHOSPHATASE 57 IU/L (42-121); ALT ALANINE AMINOTRANSFERASE 43 IU/L (10-60); AST ASPARTATE AMINOTRANSFERASE 50 IU/L (10-42); BILIRUBIN,TOTAL 0.9 mg/dL (0.2-1.0); BUN - BLOOD UREA NITROGEN 23 mg/dL (6-20); CALCIUM 10.7 mg/dL (8.5-10.3); CARBON DIOXIDE - CO2 24 mmol/L (21-32); CHLORIDE 103 mmol/L (101-111); CREATININE 1.7 mg/dL (0.6-1.3); GFR - MDRD 41 (>89); GLUCOSE 125 mg/dL (74-104); POTASSIUM 3.4 mmol/L (3.5-4.5); SODIUM 138 mmol/L (135-145); TOTAL PROTEIN 7.4 g/dL (6.4-8.9)
[2023-11-24 19:47] LABS: LIPASE < 10 U/L (11-82)
[2023-11-24 19:50] LABS: TROPONIN I HIGH SENSITIVITY 6.1 ng/L (2.3-19.7)
--- NOTE | 2023-11-24 20:12 | XRAY Report ---
PROCEDURE: Chest 1V INDICATIONS: Chest Pain TECHNIQUE: One view of the chest was acquired. COMPARISON: 03/13/2021 FINDINGS: Surgical changes and devices: None. Lungs and pleura: Eventration/elevation of the left hemidiaphragm. No dense consolidation or pleural effusion. Mediastinum: Heart size is normal and unchanged. Prominent gastric gas Bones and chest wall: Right shoulder arthroplasty. IMPRESSION: Limited single view radiograph. No acute abnormality. Unchanged elevation of the left hemidiaphragm. Prominent gas in the stomach. Reviewed by: Richard Melchor MD on 11/24/2023 8:10 PM PDT Approved by: Richard Melchor MD on 11/24/2023 8:10 PM PDT Station ID: [id number]
--- NOTE | 2023-11-24 20:59 | CT Report ---
PROCEDURE: Abdomen/Pelvis WO INDICATIONS: abn cxr, dyspnea TECHNIQUE: A CT scan of the abdomen and pelvis was performed without the use of intravenous contrast. Images we re recorded and evaluated at appropriate window settings. Reformats: coronal and sagittal. For radiat ion dose reduction, the following was used: automated exposure control, adjustment of mA and/or kV ac cording to patient size. COMPARISON: 03/10/2021 FINDINGS: Image quality: Diagnostic Lower chest: Atelectasis at the bases. Mildly patulous distal esophagus. Normal heart size. Coronary calcifications. Liver: Other organs not well evaluated without IV contrast. No contour deforming mass Gallbladder and biliary system: Unremarkable, nondilated Pancreas: No ductal dilation Spleen: Nonenlarged Adrenals: No discrete nodules Kidneys: No contour deforming mass or hydronephrosis. No obstructing calcified stone. Left upper pole probable cyst. Vessels and lymph nodes: No abdominal aortic aneurysm. Atherosclerotic calcifications are present. No pathologic lymph nodes by size criteria. Bowel and peritoneum: Moderately distended stomach as seen on radiography. Elevation of left hemidiaphragm. No acute small bowel obstruction. No pathologic ascites. Colonic div erticula are seen. Body wall: Small fat-containing left inguinal and umbilical hernias. Pelvis: Bladder is underdistended. Prostate is heterogeneous and not well evaluated on this study Bones: No acute or suspicious osseous finding. There are degenerative changes. IMPRESSION: Moderate gastric distention and elevation of the left hemidiaphragm. No acute small bowel obstruction . Other findings as above on this limited noncontrast CT. Reviewed by: Richard Melchor MD on 11/24/2023 8:57 PM PDT Approved by: Richard Melchor MD on 11/24/2023 8:57 PM PDT Station ID: [id number]
[2023-11-24] MEDS ORDERED: ACETAMINOPHEN 500 MG TABLET PO PRN (21:34)
[2023-11-24] MEDS ORDERED: ONDANSETRON 4 MG/2 ML VIAL IVP PRN (21:34)
--- NOTE | 2023-11-24 22:24 | ED Physician Documentation ---
ED Addendum - Addendum Addendum: 11/24/23 Patient signed out at shift change from Dr. Gomez. Please see his note for further details. Dr. Gomez is already spoken to cardiology at [place] who has recommended transfer. At this time do not recommend anticoagulation but treatment with aspirin and beta-mallory. 22:23 D/W Dr. Almazan (Hospitalist at [facility]). Accepts patient for transfer. 0400: Transport here to take the patient to [place]. Departure - Departure Disposition: 02 Transfer Acute Care Hosp Clinical Impression: Unstable angina Condition: Stable Forms: PCP List
[2023-11-25] MEDS: QUEtiapine 100 MG TABLET PO STA (00:12)
[2023-11-25] MEDS: PRAZOSIN 1 MG CAPSULE PO STA (00:12)
[2023-11-25 03:54] VITALS: BP 111/78; O2SAT 99
[2023-11-25] MEDS ORDERED: PANTOPRAZOLE 40 MG TABLET PO SCH (07:00)
[2023-11-25] MEDS ORDERED: METOPROLOL TARTRATE 25 MG TABLET PO SCH (09:00)
[2023-11-25] MEDS ORDERED: ASPIRIN CHEW 81 MG TABLET PO SCH (09:00)
[2023-11-25] MEDS ORDERED: ENOXAPARIN 40 MG/0.4 ML SYRINGE SUBQ SCH (09:00)
[2023-11-25] MEDS ORDERED: ATORVASTATIN 40 MG TABLET PO SCH (21:00)
== END 2023-11-25 04:21 | disposition short-term general hospital (02) ==
LOC: ED 18:54
DX: I20.0 Unstable angina (principal); I10 Essential (primary) hypertension
CPT/HCPCS: 36415; 71045; 74176; 80053; 83690; 84484; 85025; 93005; 96374; 99285; A9270; 80048

== ENCOUNTER 2023-11-25 04:15 | Outpatient (CLI) | payer OTHER | END 2023-11-25 23:59 | disposition short-term general hospital (02) | LOC: EMS 04:15 | PROVIDERS: ATTEND Emergency Medicine | DX: I20.0 Unstable angina (principal) | CPT/HCPCS: A0425; A0426 ==

== ENCOUNTER 2023-12-16 20:04 | Outpatient (CLI) | payer OTHER | END 2023-12-16 23:59 | disposition short-term general hospital (02) | LOC: EMS 20:04 | DX: R06.02 Shortness of breath (principal); R20.0 Anesthesia of skin | CPT/HCPCS: A0425; A0427 ==